=== PATIENT | female | born 1985 | race Asian ===

== ENCOUNTER 2022-02-10 12:44 | Outpatient (CLI) | payer OTHER, SELFPAY ==
--- NOTE | ~2022-02-10 | MR_ITS ---
EXAMINATION: MR shoulder RT wo con DATE: 02/10/2022 14:44 INDICATION: Persistent right shoulder pain since an accident in June 2021. TECHNIQUE: Magnetic resonance imaging (MRI) of the right shoulder was performed without intravenous c ontrast. Sequences included axial PD-weighted FS FSE, coronal oblique PD-weighted FS FSE and T2-weigh bisi FS FSE, and sagittal oblique T2-weighted FS FSE and T1-weighted FSE. COMPARISON: None. FINDINGS: Coracoacromial arch: Mild AC joint hypertrophy. Minimal acromial tip enthesopathy. No significant lateral downsloping of t he type I acromion. Normal subcoracoid space. Rotator cuff: Normal. Biceps tendon and glenoid labrum: Long and short heads of the biceps are intact. Small volume superior labrum. Focal tear in the anteri or superior labral quadrant. Redundant tissue interposed between the anterior labrum and humerus, lik robert displaced labral flap. Overall findings likely represent a variant of the type SLAP tear, with out long head of biceps tendon involvement. Fluid: Small volume glenohumeral joint fluid. Bones/cartilage: No suspicious focal or diffuse marrow signal. IMPRESSION: 1. SLAP tear with displaced flap of labral tissue anteriorly. Reviewed, dictated and finalized at location K.
== END 2022-02-10 12:45 | disposition home or self-care (01) ==
PROVIDERS: PCP Family Medicine; Visit Provider Orthopaedic Surgery
DX: S43.431A Superior glenoid labrum lesion of right shoulder, initial encounter (principal); X58.XXXA Exposure to other specified factors, initial encounter
CPT/HCPCS: 73221